=== PATIENT | female | born 1950 | race Caucasian/White ===

== ENCOUNTER → 2017-10-22 | Outpatient (CLI) | payer OTHER ==
[~2017-10-22] MED LIST: BG MC; BUSPIRONE HCL10 MG PO; CELEXA40 MG PO; COLACE100 MG PO; COZAAR100 MG PO; FER300 PO; LANTUS SOLOS100 U/M1 SQ; LEVEMIR100 U/M1 SQ; LOV30I SC; LYRICA75 M1 PO; NORCO1 TA2 PO; PRO40 PO; TRAZODONE HYDR150 MG PO
== END | disposition home or self-care (01) ==
LOC: MA 09:59
PROC: BH02ZZZ Plain Radiography of Bilateral Breasts (ICD-10-PCS; principal; 2017-10-22)
DX: R92.8 Other abnormal and inconclusive findings on diagnostic imaging of breast (principal)
CPT/HCPCS: 77066